=== PATIENT | male | born 1990 | race African-American/Black ===

== ENCOUNTER 2018-01-16 21:14 | Inpatient (IN) | payer OTHER, MEDICAID ==
[~2018-01-16] VITALS: Ht 182.9 cm; Wt 130.2 kg
[2018-01-16] MEDS ORDERED: ALBUTEROL (0.083%) 2.5MG/3ML NEB HHN STA (21:45)
[2018-01-16] MEDS ORDERED: METHYLPREDNISOLONE SOD SUCC 125 MG/2 ML VIAL IV STA (21:45)
[2018-01-16] MEDS ORDERED: IPRATROPIUM BROMIDE (0.02%) 0.5MG/2.5ML NEB HHN STA (21:45)
[2018-01-16] MEDS ORDERED: PREDNISOLONE 15 MG/5 ML ORAL SYRINGE PO ONE (22:00)
[2018-01-16 23:15] LABS: BASOPHILS % 0.8 % (0.0-2.0); EOSINOPHILS % 8.1 % (0.0-5.0); HEMATOCRIT. 47.7 % (42.0-52.0); HEMOGLOBIN. 16.3 g/dL (14.0-18.0); LYMPHOCYTES % 26.5 % (20.0-50.0); MEAN CORPUSCULAR HEMOGLOBIN 31.7 pg (28.0-32.0); MEAN CORPUSCULAR VOLUME 92.6 fL (80.0-94.0); MEAN PLATELET VOLUME 10.4 fl (7.4-10.4); MONOCYTES % 8.8 % (2.0-8.0); NEUTROPHILS % 55.8 % (40.0-76.0); PLATELET 161 x1000/uL (130-400); RED BLOOD CELL COUNT 5.15 mill/uL (4.7-6.1); RED CELL DISTRIBUTION WIDTH 13.7 % (11.6-14.6)
[2018-01-16 23:19] LABS: CHLORIDE 104 mEq/L (98-107)
[2018-01-17] MEDS ORDERED: ALBUTEROL (0.083%) 2.5MG/3ML NEB HHN STA (01:36)
[2018-01-17 04:10] VITALS: BP 145/88
[2018-01-17 04:24] VITALS: BP 145/88
[2018-01-17] MEDS ORDERED: SODIUM CHLORIDE 0.9% 1,000 ML IV SCH (04:35)
[2018-01-17] MEDS ORDERED: GUAIFENESIN 200MG/10ML SUGAR FREE UDC PO PRN (04:45)
[2018-01-17] MEDS ORDERED: CLONIDINE 0.1MG TABLET PO PRN (04:45)
[2018-01-17] MEDS ORDERED: ACETAMINOPHEN 325MG TABLET PO PRN (04:45)
[2018-01-17] MEDS ORDERED: ONDANSETRON HCL 4MG/2ML INJ IV PRN (04:45)
[2018-01-17] MEDS ORDERED: DIPHENHYDRAMINE 50MG/ML VIAL IV PRN (04:45)
[2018-01-17] MEDS ORDERED: MAGNESIUM/ALUMINUM HYDROXIDE/SIMETHICONE 30ML UDC PO PRN (08:00)
[2018-01-17] MEDS ORDERED: DOCUSATE SODIUM 100MG CAPSULE PO PRN (09:00)
[2018-01-17] MEDS: IPRATROPIUM/ALBUTEROL 0.5-3(2.5)MG/3ML NEB INH SCH ×3 (09:50→21:42)
[2018-01-17] MEDS: METHYLPREDNISOLONE SOD SUCC 125 MG/2 ML VIAL IV SCH ×2 (14:00→22:07)
[2018-01-17 14:05] VITALS: BP 110/71
[2018-01-17] MEDS ORDERED: IPRATROPIUM/ALBUTEROL 0.5-3(2.5)MG/3ML NEB HHN PRN (15:30)
[2018-01-17] MEDS ORDERED: RISP0.5T19 MT (16:15)
[2018-01-17] MEDS ORDERED: TRAZ150T78 MT (16:15)
[2018-01-17] MEDS ORDERED: IMIP50TA7 MT (16:15)
[2018-01-17] MEDS ORDERED: ALBU18HF2 IH (16:15)
[2018-01-17] MEDS: LORATADINE 10MG TABLET PO SCH (16:22)
[2018-01-17] MEDS ORDERED: MONTELUKAST SODIUM 10MG TABLET PO SCH (17:00)
[2018-01-17 20:00] VITALS: BP 124/79
[2018-01-17] MEDS ORDERED: TRAZODONE HCL 100MG TABLET PO SCH (21:00)
[2018-01-17] MEDS ORDERED: RISPERIDONE 0.5MG TABLET PO SCH (21:00)
[2018-01-17] MEDS ORDERED: IMIPRAMINE HCL 25MG TABLET PO SCH (22:00)
[2018-01-17] MEDS: FAMOTIDINE 20MG/2ML VIAL IV SCH (22:07)
[2018-01-18] VITALS: BP 140/77
[2018-01-18] MEDS: IPRATROPIUM/ALBUTEROL 0.5-3(2.5)MG/3ML NEB INH SCH ×2 (02:15→08:00)
[2018-01-18 04:00] VITALS: BP 151/86
[2018-01-18] MEDS: METHYLPREDNISOLONE SOD SUCC 125 MG/2 ML VIAL IV SCH ×2 (06:27→13:16)
[2018-01-18 07:09] LABS: HEMATOCRIT. 48.5 % (42.0-52.0); HEMOGLOBIN. 15.9 g/dL (14.0-18.0); MEAN CORPUSCULAR HEMOGLOBIN 30.7 pg (28.0-32.0); MEAN CORPUSCULAR VOLUME 93.6 fL (80.0-94.0); MEAN PLATELET VOLUME 10.2 fl (7.4-10.4); PLATELET 188 x1000/uL (130-400); RED BLOOD CELL COUNT 5.18 mill/uL (4.7-6.1); RED CELL DISTRIBUTION WIDTH 14.1 % (11.6-14.6)
[2018-01-18 07:20] LABS: CHLORIDE 104 mEq/L (98-107)
[2018-01-18] MEDS: LORATADINE 10MG TABLET PO SCH (09:34)
[2018-01-18] MEDS: FAMOTIDINE 20MG/2ML VIAL IV SCH (09:34)
[2018-01-18 09:37] LABS: PLATELET ESTIMATE NORMAL
[2018-01-18 13:56] VITALS: BP 142/79
== END 2018-01-18 14:12 | disposition home or self-care (01) | DRG 189 ==
LOC: ER 21:14 → 6EST 01-17 02:16 → EDBEDREQSVC 01-17 02:18 → EDBEDREQ 01-17 02:18 → EDBEDREQTM 01-17 02:18 → ENRESERV 01-17 02:21 → 6EST 01-17 09:13
PROVIDERS: ADMIT Family Medicine Adult Medicine; ATTEND Family Medicine Adult Medicine
DX: J96.00 Acute respiratory failure, unspecified whether with hypoxia or hypercapnia (principal); J45.901 Unspecified asthma with (acute) exacerbation; F84.0 Autistic disorder; D72.1 Eosinophilia; E66.9 Obesity, unspecified; R00.0 Tachycardia, unspecified; Z88.5 Allergy status to narcotic agent; Z68.38 Body mass index [BMI] 38.0-38.9, adult
CPT/HCPCS: 36415; 71045; 80048; 93005; 94640; 94644; 99285; C1893; J2930; J3490; J7611; J7620